=== PATIENT | female | born 1980 | race Caucasian/White ===

== ENCOUNTER 2017-01-01 12:24 | Emergency (ER) | payer MEDICAID ==
[~2017-01-01] VITALS: Ht 154.9 cm; Wt 72.1 kg
[2017-01-01 12:24] VITALS: BP 129/79
--- NOTE | 2017-01-01 12:47 | NUR ---
DR MARLEY AT BEDSIDE FOR EVAL.
[2017-01-01] MEDS ORDERED: SILVER SULFADIAZINE CREAM 25 GM TUBE ONE (12:55)
[2017-01-01] MEDS ORDERED: TDAP [DIPH/PERTUSSIS/TET] 0.5 ML VIAL IM ONE ×2 (12:55→13:00)
[2017-01-01] MEDS ORDERED: SILVER SULFADIAZINE CREAM 25 GM TUBE TP ONE (13:00)
--- NOTE | 2017-01-01 13:15 | NUR ---
WOUND CARE PROVIDED.
== END 2017-01-01 13:29 | disposition home or self-care (01) ==
LOC: ER 12:27
DX: T25.221A Burn of second degree of right foot, initial encounter (principal); T79.9XXA Unspecified early complication of trauma, initial encounter; X12.XXXA Contact with other hot fluids, initial encounter; Y93.89 Activity, other specified; Y92.89 Other specified places as the place of occurrence of the external cause; Y99.8 Other external cause status
CPT/HCPCS: 16020; 90471; 90715; 99284; A4606; A6402; Z7610

== ENCOUNTER 2017-03-01 21:02 | Emergency (ER) | payer MEDICAID ==
[~2017-03-01] VITALS: Ht 160 cm; Wt 74.8 kg
--- NOTE | 2017-03-01 21:30 | NUR ---
TO BED 7 AMBULATORY C/O SUPRAPUBIC PAIN WITH FREQUENCY URINATION SINCE SUNDAY, PT ALSO REPORT VAGINAL BLEEDING ONCE ON SUNDAY AND ONCE TODAY. PT AAOX4 NO ACUTE DISTRESS NOTED, RESP EVEN AND UNLABORED. URNE SAMPLE COLLECTED AND SENT TO LAB. PENDING ER MD WRIGHT.
--- NOTE | 2017-03-01 21:46 | NUR ---
LAB CALLED FOR BLOOD DRAW.
--- NOTE | 2017-03-01 21:55 | NUR ---
BLOOD DRAWN BY TELEPHONE ANSWERER.
[2017-03-01 21:57] LABS: BASOPHILS # (AUTO) 0.1 /CMM (0.0-0.2); BASOPHILS % (AUTO) 0.7 % (0.0-2.0); EOSINOPHILS # (AUTO) 0.2 /CMM (0.0-0.7); EOSINOPHILS % (AUTO) 1.9 % (0.0-6.0); HEMATOCRIT 35 % (33-45); HEMOGLOBIN 11.8 g/dL (11.5-14.8); LYMPHOCYTES # (AUTO) 3.7 /CMM (0.8-4.8); LYMPHOCYTES % (AUTO) 40.6 % (20.0-44.0); MEAN CORPUSCULAR HEMOGLOBIN 28 PG (26.0-33.0); MEAN CORPUSCULAR HGB CONC 34 g/dl (31.0-36.0); MEAN CORPUSCULAR VOLUME 82 fL (82-100); MONOCYTES # (AUTO) 0.6 /CMM (0.1-1.30); MONOCYTES % (AUTO) 6.8 % (2.0-12.0); NEUTROPHILS # (AUTO) 4.4 /CMM (1.8-8.9); PLATELET COUNT (AUTO) 289 /CMM (150-450); RDW COEFFICIENT OF VARIATION 13.4 (11.5-15.0); RED BLOOD CELL COUNT(AUTO) 4.28 MIL/uL (4.0-5.2)
--- NOTE | 2017-03-01 22:00 | NUR ---
US AT THE BEDSIDE.
[2017-03-01 22:18] LABS: INR 0.94 (0.87-1.13)
[2017-03-01 23:24] LABS: BILIRUBIN,URINE NEGATIVE (NEGATIVE); BLOOD, URINE NEGATIVE Ery/uL (NEGATIVE); COLOR,URINE YELLOW (YELLOW); KETONES,URINE NEGATIVE (NEGATIVE); LEUKOCYTE ESTERASE ,URINE NEGATIVE (NEGATIVE); NITRITE, URINE NEGATIVE (NEGATIVE); PROTEIN,URINE NEGATIVE (NEGATIVE); UGLUCOSE NEGATIVE (NEGATIVE); UROBILINOGEN,URINE 0.2 EU/dL (0.2)
--- NOTE | 2017-03-01 23:29 | NUR ---
PT APPEARS TO BE RESTING COMFORTABLY WITH NO S/S OF PAIN OR DISTRESS.
[2017-03-01 23:30] LABS: APPEARANCE,URINE CLEAR (CLEAR)
--- NOTE | 2017-03-02 00:16 | NUR ---
Carlos castano in [facility] - 03/02/17 at 0016 by JUAN CARLOS US TECH IS AT THE BEDSIDE.
--- NOTE | 2017-03-02 00:19 | NUR ---
ANA LAURA MARTINES IS AT THE BEDSIDE SPEAKING TO THE PT.
--- NOTE | 2017-03-02 00:24 | NUR ---
Patient discharged to home in stable condition. Written and verbal after care instructions given. Patient verbalizes understanding of instruction. PT TO F/U WITH [employer] IN 2 DAYS. VSS. PT AMBULATED OUT WITH A STEADY GAIT.
[2017-03-02 00:26] VITALS: BP 95/67
== END 2017-03-02 00:26 | disposition home or self-care (01) ==
LOC: ER 21:07
DX: O20.0 Threatened abortion (principal); Z98.890 Other specified postprocedural states
CPT/HCPCS: 36415; 76856; 81001; 84702; 85025; 85730; 86850; 99285; A4606 ×2; Z7610 ×2; 81000-TC

== ENCOUNTER 2017-03-04 21:35 | Emergency (ER) | payer MEDICAID ==
[~2017-03-04] VITALS: Ht 160 cm; Wt 74.8 kg
[2017-03-04 21:40] VITALS: BP 116/72
== END 2017-03-04 23:56 | disposition home or self-care (01) ==
LOC: ER 21:38
DX: Z32.01 Encounter for pregnancy test, result positive (principal); Z3A.01 Less than 8 weeks gestation of pregnancy
CPT/HCPCS: 36415; 84702-TC; A4606; Z7610